=== PATIENT | female | born 1990 | race Caucasian/White ===

== ENCOUNTER → 2020-04-24 | Outpatient (CLI) | payer BC ==
[~2020-04-24] MED LIST: AMOXICILLIN500 M2 PO; BENTYL10 MG PO; BIRTH CONTROL1 EAC1 PO; PEPCID20 MG PO; SEPTRA DS1 TAB PO; ULTRAM50 MG PO; ZOFRAN ODT4 MG SL
== END | disposition home or self-care (01) ==
LOC: COVID19 15:37
PROVIDERS: ATTEND Internal Medicine
DX: Z20.822 Contact with and (suspected) exposure to COVID-19 (principal)

== ENCOUNTER → 2020-04-29 | Outpatient (CLI) | payer BC | END | disposition home or self-care (01) | LOC: COVID19 16:05 | PROVIDERS: ATTEND Internal Medicine | DX: U07.1 COVID-19 (principal) ==